=== PATIENT | female | born 1995 | race African-American/Black ===

== ENCOUNTER 2018-06-24 13:41 | Emergency (ER) | payer OTHER ==
[2018-06-24 14:29] VITALS: BP 117/69
--- NOTE | 2018-06-24 16:07 | UC ---
Headache HPI - HPI Summary HPI Summary: 23-year-old female with history of sinusitis in the past presents with 5 days of L sided sinus pressure and pain located in the left axillary area and left forehead similar to prior episodes, not associated with any nausea, vomiting, visual changes, or fever. - History Of Current Complaint Chief Complaint: UCGeneralIllness Stated Complaint: SINUS COMPLAINT Pain Intensity: 5 - Allergies/Home Medications Allergies/Adverse Reactions: Allergies Allergy/AdvReac Type Severity Reaction Status Date / Time No Known Allergies Allergy Verified 06/24/18 14:24 Home Medications: Home Medications Guaifen/Phenyleph/Acetaminophn [Tylenol Cold Head Congest Cplt] 1 each PO DAILY 06/24/18 [History Confirmed 06/24/18] PMH/Surg Hx/FS Hx/Imm Hx - Additional Past Medical History Additional PMH: Sinusitis in the past Previously Healthy: Yes - Surgical History Surgical History: None - Social History Alcohol Use: Occasionally Substance Use Type: None Smoking Status (MU): Never Smoked Tobacco Review of Systems Constitutional: Negative Skin: Negative Eyes: Negative ENT: Sinus Congestion, Sinus Pain/Tenderness Respiratory: Negative Cardiovascular: Negative Gastrointestinal: Negative Neurological: Negative All Other Systems Reviewed And Are Negative: Yes Physical Exam - Summary Physical Exam Summary: Gen: alert, in no acute distress HEENT: EOMI, normocephalic, atruamatic Neck: supple, no masses, mild left-sided maxillary tenderness to percussion CV: Normal s1 s2, no murmurs Resp: normal breath sounds b/l GI: no tenderness, no masses Musculoskeletal: normal ROM all 4 extremities Neuro: no obvious focal neurological deficits Skin: no rash Lymph: no lymphadenopathy Psych: appropriate affect, oriented Triage Information Reviewed: Yes Vital Signs: Initial Vital Signs Temp 36.5 C 06/24/18 14:20 Pulse 93 06/24/18 14:20 Resp 18 06/24/18 14:20 BP 117/69 06/24/18 14:20 Pulse Ox 99 06/24/18 14:20 Headache Course/Dx - Course Course Of Treatment: Symptoms likely due to left-sided sinusitis, prescribed antibiotic instructed to follow up with primary care physician. Agrees to and understands discharge instructions. No evidence of cranial nerve deficit or visual changes. No headache. - Differential Dx/Diagnosis Provider Diagnoses: sinusitis Discharge - Sign-Out/Discharge Documenting (check all that apply): Patient Departure All imaging exams completed and their final reports reviewed: No Studies - Discharge Plan Condition: Stable Disposition: HOME Prescriptions: Amoxicillin/Clavulanate TAB* [Augmentin TAB 875*] 875 mg PO BID #10 tab Patient Education Materials: Rhinosinusitis (DC) Referrals: Annabel Marie MD [Medical Doctor] - Additional Instructions: PLEASE TAKE MEDICATIONS DIRECTED PLEASE FINISH FULL COURSE OF ANTIBIOTIC PLEASE MAKE AN APPOINTMENT TO BE SEEN BY YOUR PRIMARY CARE DOCTOR WITHIN 1-2 WEEKS PLEASE REPORT TO THE ER FOR ANY WORSENING OR CONCERNING SYMPTOMS - Billing Disposition and Condition Condition: STABLE Disposition: Home
== END 2018-06-24 16:11 | disposition home or self-care (01) ==
LOC: UCCORT 13:41
DX: J32.9 Chronic sinusitis, unspecified (principal)
CPT/HCPCS: 99202; G0463